=== PATIENT | male | born 1940 | race Caucasian/White ===

== ENCOUNTER → 2020-03-10 | Outpatient (CLI) | payer OTHER | LOC: LAB FS 10:02 | PROVIDERS: ATTEND Orthopaedic Surgery Orthopaedic Surgery of the Spine | DX: Z01.812 Encounter for preprocedural laboratory examination (principal); Z20.828 Contact with and (suspected) exposure to other viral communicable diseases | CPT/HCPCS: 87635 ==

== ENCOUNTER → 2020-07-14 | Outpatient (CLI) | payer MEDICARE ==
[2020-07-14 12:54] LABS: EOSINOPHILS % (AUTO) 7 % (0-10); HEMATOCRIT 34 % (40-54); LYMPHOCYTES % (AUTO) 30 % (12-44); MEAN CORPUSCULAR HEMOGLOBIN 20 PG (25-34); MEAN CORPUSCULAR HGB CONC 30 G/DL (32-36); MEAN CORPUSCULAR VOLUME 69 FL (80-99); MEAN PLATELET VOLUME 8.5 FL (7.4-10.4); MONOCYTES % (AUTO) 8 % (0-12); NEUTROPHILS % (AUTO) 55 % (42-75); PLATELET COUNT 330 10^3/uL (130-400); WHITE BLOOD COUNT 5.3 10^3/uL (4.3-11.0)
[2020-07-14 12:55] LABS: BASOPHILS % (AUTO) 0 % (0-10); EOSINOPHILS # (AUTO) 0.4 10^3/uL (0.0-0.3); LYMPHOCYTES # (AUTO) 1.6 X 10^3 (1.0-4.0); MONOCYTES # (AUTO) 0.4 X 10^3 (0.0-1.0); NEUTROPHILS # (AUTO) 2.9 X 10^3 (1.8-7.8)
[2020-07-14 13:27] LABS: BILIRUBIN,TOTAL 0.3 MG/DL (0.1-1.0); CALCIUM 8.9 MG/DL (8.5-10.1); CREATININE SERUM 1.51 MG/DL (0.60-1.30); POTASSIUM 4.5 MMOL/L (3.6-5.0); TOTAL PROTEIN 6.7 GM/DL (6.4-8.2)
== END ==
LOC: LAB FS 11:57
PROVIDERS: ATTEND Internal Medicine Hematology & Oncology
DX: D50.9 Iron deficiency anemia, unspecified (principal)
CPT/HCPCS: 36415; 80053; 82728; 83540; 83550; 85025

== ENCOUNTER 2020-08-04 05:30 | Outpatient (RCR) | payer MEDICARE ==
[~2020-08-04] VITALS: Ht 170.2 cm; Wt 72.1 kg
[~2020-08-04 05:30] MED LIST changes: -ACHYD1T PO; -ASPI-808 PO
== END 2020-08-04 09:18 | disposition home or self-care (01) ==
LOC: PREOP 05:30
PROVIDERS: ATTEND Surgery
DX: Z01.818 Encounter for other preprocedural examination (principal)

== ENCOUNTER → 2020-08-04 | Outpatient (CLI) | payer MEDICARE ==
[~2020-08-04] MED LIST: ACHYD1T PO; ALPR0.254 PO; ASPI-808 PO; AVOD0.5CAP PO; CARV12.53 PO; DULO60CA59 PO; FERR325T18 PO; LEVO125C4 PO; LISI10TA25 PO; LOVA40TA2 PO; MELO10CA3 PO; MV-M1TAB20 PO; OMEP40CA27 PO; RT-ALBUINH INH; TMSL.4C PO; UMEC1BLS IH; VITA1CAP PO
== END ==
LOC: LAB FS 09:56
PROVIDERS: ATTEND Surgery
DX: Z01.812 Encounter for preprocedural laboratory examination (principal); D64.9 Anemia, unspecified; K92.1 Melena; Z87.19 Personal history of other diseases of the digestive system; Z20.822 Contact with and (suspected) exposure to COVID-19
CPT/HCPCS: 87635

== ENCOUNTER 2020-08-07 09:31 | Day surgery (SDC) | payer MEDICARE ==
[~2020-08-07] VITALS: Ht 172.7 cm; Wt 72.1 kg
[2020-08-07] MEDS ORDERED: LACTATED RINGERS 1,000 ML IV STA (09:38)
[2020-08-07] MEDS ORDERED: LACTATED RINGERS 1,000 ML IV ONE (09:39)
[2020-08-07 09:45] VITALS: BP 167/86
[2020-08-07] MEDS ORDERED: HURRICAINE EXT TUBE (BENZOCAINE) XX PRN (09:45)
[2020-08-07] MEDS ORDERED: PROPOFOL INJECTION 50 ML IV ONE (09:52)
[2020-08-07] MEDS ORDERED: ASPI-808 PO (10:21)
[2020-08-07] MEDS ORDERED: ACHYD1T PO (10:21)
[2020-08-07] MEDS ORDERED: meTOprolol 5 MG/5 ML (LOPRESSOR) VIAL ONE (10:56)
--- NOTE | 2020-08-07 10:59 | Progress Note-Pre Operative ---
Pre-Operative Progress Note H&P Reviewed The H&P was reviewed, patient examined and no changes noted. Time Seen by Provider: 10:56 Date H&P Reviewed: August 07, 2020 Time H&P Reviewed: 10:56 Pre-Operative Diagnosis: Anemia, Melena, hx of SAL ANTONIO DO August 07, 2020 10:59
--- NOTE | 2020-08-07 11:22 | Progress Note-Post Operative ---
Post-Operative Progess Note Surgeon (s)/Warehouse Logistics Coordinator (s) Surgeon SAL BUSTOS DO Warehouse Logistics Coordinator: none Pre-Operative Diagnosis Anemia, Melena, hx of GERD Post-Operative Diagnosis same plus Gastritis Int hemorrhoids Procedure & Operative Findings Date of Procedure 08/07/20 Procedure Performed/Findings EGD with bx Colon Anesthesia Type IV sedation by TOUR COUNSELOR Estimated Blood Loss Estimated blood loss (mL): scant Specimens/Packing Specimens Removed antral bx body of stomach bx GE jxn bx SAL BUSTOS DO August 07, 2020 11:22
--- NOTE | 2020-08-07 11:23 | Endoscopy Discharge Instruct ---
Endo Procedure/Findings Findings 1.: Gastritis 2.: Internal Hemorrhoids Discharge Instructions - Activity: You might feel a little sleepy until tomorrow. This is due to the medicine you received to relax you. Until tomorrow, you should: NOT drive a car, operate machinery or power tools. NOT drink any alcoholic beverages. NOT make any important decisions or sign importortant papers. Do not return to work until tomorrow, unless otherwise instructed. Resume previous activities tomorrow. Diet: Start by taking liquids. If you tolerate liquids, advance to solid food. 1.: Colonscopy in 10 years, EGD in 3 years Notify Physician - If you experience excessive bleeding, unusual abdominal pain, fever, or chest p ain, contact your doctor immediately. SAL BUSTOS DO August 07, 2020 11:23
[2020-08-07 11:26] VITALS: BP 149/78
[2020-08-07 11:31] VITALS: BP 161/77
[2020-08-07 11:36] VITALS: BP 183/84
[2020-08-07 12:10] VITALS: BP 173/83
--- NOTE | 2020-08-07 12:40 | Anesthesia-General Post-Op ---
MAC Patient Condition Mental Status/LOC: Same as Preop Cardiovascular: Satisfactory Nausea/Vomiting: Absent Respiratory: Satisfactory Pain: Controlled Complications: Absent Post Op Complications Complications None Follow Up Care/Instructions Patient Instructions None needed. Anesthesiology Discharge Order Discharge Order Patient is doing well, no complaints, stable vital signs, no apparent adverse anesthesia problems. No complications reported per nursing. PERLITA HAYWARD CRNA August 07, 2020 12:40
--- NOTE | 2020-08-07 21:12 | OPERATIVE REPORT ---
DATE OF SERVICE: 08/07/2020 PREOPERATIVE DIAGNOSES: Anemia, melena, history of gastroesophageal reflux disease. POSTOPERATIVE DIAGNOSES: Gastritis and internal hemorrhoids. PROCEDURE: 1. EGD with biopsy. 2. Colonoscopy. SURGEON: Alcon David DO RESERVATIONS AGENT: None. ANESTHESIA: IV sedation by the INSULATION MACHINE OPERATOR. SPECIMEN: Antral biopsy, body of stomach biopsy and GE junction biopsy. BLOOD LOSS: Scant. FLUIDS: Per anesthesia. POSTOPERATIVE CONDITION: Stable. INDICATION FOR PROCEDURE: The patient is a 80-year-old male who has some anemia, melena and history of GERD and needed a workup. FINDINGS: The patient had some gastritis and some internal hemorrhoids with no other obvious pathology. PROCEDURE NOTE: After informed consent was obtained, the patient was brought to the endoscopy suite, placed in bed in left lateral decubitus position. He was administered IV sedation by the INSULATION MACHINE OPERATOR who then monitored his vitals the entire time, heart rate, blood pressure and pulse ox, started with the EGD, placing scope down the mouth through the esophagus, noted some mild, possibly esophagitis at the GE junction, took a picture. Pushed in, saw the antrum, saw some mild gastritis, pushed into the duodenum. Duodenum looked good, took a picture. Pulled back and did a biopsy of the antrum. Retroflexed the scope and I did not see hiatal hernia, did a biopsy of body of stomach and then pulled the scope into the GE junction, did a biopsy, then pulled the scope up the esophagus, took a picture of the esophagus in and out, had suctioned all the air out of the stomach. Switched camera, switched gloves, went down below, started the colonoscopy, pushed in to about [address] to cecum, took a picture of appendiceal orifice, noted the ileocecal valve and then slowly withdrew the scope insufflating the circumferential yun looking at the cecum up the ascending colon to the hepatic flexure, then down the transverse colon, splenic flexure, into the descending colon down to the sigmoid and finally into the rectum, retroflexed in the rectal vault, saw some minimal internal hemorrhoids, took a picture of this and then removed the scope. The patient tolerated the procedure, recovered in endoscopy suite. Job ID: [id number] DocumentID: [id number] Dictated Date: 08/07/2020 14:35:50 Dairy Processing Supervisor Date: 08/07/2020 21:11:48 Dictated By: ALCON DAVID DO
== END 2020-08-07 12:10 | disposition home or self-care (01) ==
LOC: ENDO 09:31
PROVIDERS: ATTEND Surgery
DX: K29.50 Unspecified chronic gastritis without bleeding (principal); K21.00 Gastro-esophageal reflux disease with esophagitis, without bleeding; K64.8 Other hemorrhoids; D50.9 Iron deficiency anemia, unspecified; I10 Essential (primary) hypertension; J44.9 Chronic obstructive pulmonary disease, unspecified; F32.9 Major depressive disorder, single episode, unspecified; M19.90 Unspecified osteoarthritis, unspecified site; Z79.84 Long term (current) use of oral hypoglycemic drugs; Z79.899 Other long term (current) drug therapy; Z79.51 Long term (current) use of inhaled steroids; Z87.891 Personal history of nicotine dependence; Z87.11 Personal history of peptic ulcer disease; Z79.890 Hormone replacement therapy
CPT/HCPCS: 88305

== ENCOUNTER 2020-09-05 13:04 | Outpatient (RCR) | payer MEDICARE, OTHER ==
[2020-07-12 15:24] LABS: BASOPHILS % (AUTO) 1 % (0-10); EOSINOPHILS # (AUTO) 0.4 10^3/uL (0.0-0.3); EOSINOPHILS % (AUTO) 7 % (0-10); HEMATOCRIT 34 % (40-54); HEMOGLOBIN 10.1 g/dL (13.3-17.7); LYMPHOCYTES # (AUTO) 1.5 10^3/uL (1.0-4.0); LYMPHOCYTES % (AUTO) 26 % (12-44); MEAN CORPUSCULAR HEMOGLOBIN 20 pg (25-34); MEAN CORPUSCULAR HGB CONC 29 g/dL (32-36); MEAN CORPUSCULAR VOLUME 69 fL (80-99); MEAN PLATELET VOLUME 8.4 fL (9.0-12.2); MONOCYTES # (AUTO) 0.4 10^3/uL (0.0-1.0); MONOCYTES % (AUTO) 7 % (0-12); NEUTROPHILS # (AUTO) 3.2 10^3/uL (1.8-7.8); NEUTROPHILS % (AUTO) 58 % (42-75); PLATELET COUNT 254 10^3/uL (130-400); WHITE BLOOD COUNT 5.6 10^3/uL (4.3-11.0)
[~2020-09-05 13:04] MED LIST changes: +ACHYD1T PO; +ASPI-808 PO; +FERRIC CARBOXYMALTOSE (CANCER) 750 MG in NS (IVPB) CANCER CENTER 250 ML IV SCH; -OMEP40CA27 PO; +OMEP40CA6 PO
[2020-09-05 13:23] LABS: BASOPHILS % (AUTO) 1 % (0-10); EOSINOPHILS # (AUTO) 0.3 10^3/uL (0.0-0.3); EOSINOPHILS % (AUTO) 6 % (0-10); HEMATOCRIT 42 % (40-54); HEMOGLOBIN 13.7 g/dL (13.3-17.7); LYMPHOCYTES # (AUTO) 1.2 10^3/uL (1.0-4.0); LYMPHOCYTES % (AUTO) 24 % (12-44); MEAN CORPUSCULAR HEMOGLOBIN 26 pg (25-34); MEAN CORPUSCULAR HGB CONC 32 g/dL (32-36); MEAN CORPUSCULAR VOLUME 81 fL (80-99); MEAN PLATELET VOLUME 8.7 fL (9.0-12.2); MONOCYTES # (AUTO) 0.3 10^3/uL (0.0-1.0); MONOCYTES % (AUTO) 5 % (0-12); NEUTROPHILS # (AUTO) 3.2 10^3/uL (1.8-7.8); NEUTROPHILS % (AUTO) 64 % (42-75); PLATELET COUNT 220 10^3/uL (130-400)
[2020-09-05 13:47] LABS: BILIRUBIN,TOTAL 0.3 MG/DL (0.1-1.0); CALCIUM 9.2 MG/DL (8.5-10.1); CREATININE SERUM 1.62 MG/DL (0.60-1.30)
== END 2020-10-03 | disposition home or self-care (01) ==
LOC: ONC 13:04
PROVIDERS: ATTEND Internal Medicine Hematology & Oncology
DX: Z51.11 Encounter for antineoplastic chemotherapy (principal); D50.9 Iron deficiency anemia, unspecified; N18.30 Chronic kidney disease, stage 3 unspecified; D63.1 Anemia in chronic kidney disease; K21.9 Gastro-esophageal reflux disease without esophagitis
CPT/HCPCS: 96365; G0463; 80053; 82728; 83540; 83550; 84100; 85025; 99213

== ENCOUNTER 2021-01-30 14:02 | Outpatient (RCR) | payer MEDICARE ==
[~2021-01-30 14:02] MED LIST changes: -FERRIC CARBOXYMALTOSE (CANCER) 750 MG in NS (IVPB) CANCER CENTER 250 ML IV SCH
[2021-01-30 14:12] LABS: BASOPHILS % (AUTO) 0 % (0-10); EOSINOPHILS # (AUTO) 0.3 10^3/uL (0.0-0.3); EOSINOPHILS % (AUTO) 4 % (0-10); HEMATOCRIT 41 % (40-54); HEMOGLOBIN 13.7 g/dL (13.3-17.7); LYMPHOCYTES # (AUTO) 1.2 X 10^3 (1.0-4.0); LYMPHOCYTES % (AUTO) 14 % (12-44); MEAN CORPUSCULAR HEMOGLOBIN 30 pg (25-34); MEAN CORPUSCULAR HGB CONC 33 g/dL (32-36); MEAN CORPUSCULAR VOLUME 91 fL (80-99); MONOCYTES # (AUTO) 0.5 X 10^3 (0.0-1.0); MONOCYTES % (AUTO) 7 % (0-12); NEUTROPHILS # (AUTO) 6.3 X 10^3 (1.8-7.8); NEUTROPHILS % (AUTO) 76 % (42-75); PLATELET COUNT 232 10^3/uL (130-400); WHITE BLOOD COUNT 8.3 10^3/uL (4.3-11.0)
[2021-01-30 14:29] LABS: ALBUMIN 4.1 GM/DL (3.2-4.5); BILIRUBIN,TOTAL 0.4 MG/DL (0.1-1.0); CALCIUM 9.6 MG/DL (8.5-10.1); CREATININE SERUM 1.89 MG/DL (0.60-1.30); POTASSIUM 5.5 MMOL/L (3.6-5.0); TOTAL PROTEIN 7.3 GM/DL (6.4-8.2)
== END 2021-04-06 | disposition home or self-care (01) ==
LOC: ONC 14:02
PROVIDERS: ATTEND Internal Medicine Hematology & Oncology
DX: D50.9 Iron deficiency anemia, unspecified (principal); E78.5 Hyperlipidemia, unspecified; K20.90 Esophagitis, unspecified without bleeding; K64.8 Other hemorrhoids; D63.1 Anemia in chronic kidney disease; I12.9 Hypertensive chronic kidney disease with stage 1 through stage 4 chronic kidney disease, or unspecified chronic kidney disease; N18.9 Chronic kidney disease, unspecified
CPT/HCPCS: 80053; 82607; 82728; 82746; 83540; 83550; 85025; G0463; 99213

== ENCOUNTER → 2022-03-22 | Outpatient (CLI) | payer MEDICARE ==
[~2022-03-22] MED LIST changes: +CATHETER FLUSH 10 ML SYR IV PRN; +HOLD METFORMIN - RECEIVED CONTRAST 20 ML VIAL IV SCH; +IOHEXOL 350 MG/ML 100 ML (OMNIPAQUE 350) VIAL IV ONE; +NS 100 ML (IVPB) BAG IV ONE
[2022-03-22 12:55] LABS: CREATININE SERUM 1.78 MG/DL (0.60-1.30)
--- NOTE | 2022-03-22 16:01 | Diagnostic Imaging Report ---
PROCEDURE: CT neck soft tissue with contrast. TECHNIQUE: Multiple contiguous axial images were obtained through the neck after the administration of contrast. Auto Exposure Controls were utilized during the CT exam to meet ALARA standards for radiation dose reduction. INDICATION: Chronic throat pain, right sided. COMPARISON: None. FINDINGS: The posterior nasopharynx and oropharynx demonstrate appropriate symmetry. There is no displacement of the parapharyngeal fat planes. There is no abnormal process evident within the prevertebral or retropharyngeal space. There is no evidence of abnormal thickening of the epiglottis or aryepiglottic folds. The vocal folds appear symmetric. The parotid, submandibular and thyroid gland are unremarkable. No pathologically enlarged cervical lymph nodes are evident. No focal inflammatory changes are demonstrated. No soft tissue mass or fluid collection demonstrated. The vascular structures the neck demonstrate no evidence of high-grade stenosis on this nondedicated exam. Centrilobular emphysema is seen in the lung apices. The visualized intracranial contents demonstrate no evidence of pathologic intracranial enhancement or intracranial mass effect. Visualized orbital contents are unremarkable. Retained secretions are seen in the left maxillary sinus. The mastoids and middle ears are clear. No acute osseous abnormality in the cervical spine. IMPRESSION: 1. Appropriate symmetry of the aerodigestive tract. 2. No evidence of pathologic adenopathy. 3. No soft tissue mass, fluid collection or focal inflammatory changes demonstrated. 4. Centrilobular emphysema in the lung apices. 5. Retained secretions in the left maxillary sinus. Dictated by: Dictated on workstation # [id number]
== END ==
LOC: LAB FS 12:12
PROVIDERS: ATTEND Otolaryngology Otolaryngology/Facial Plastic Surgery
DX: R07.0 Pain in throat (principal)
CPT/HCPCS: 36415; 70491; 82565; 84520; Q9967